=== PATIENT | female | born 1995 | race Hispanic/Latino ===

== ENCOUNTER 2018-01-03 11:10 | Emergency (ER) | payer MEDICAID, OTHER ==
[~2018-01-03 11:10] MED LIST: FERS325 PO; IBUP-2070 PO
[2018-01-03 12:07] LABS: BASOPHILS % (AUTO) 0.6 % (0.0-5.0); EOSINOPHILS % (AUTO) 0.7 % (0.0-8.0); HEMATOCRIT 28.4 % (36-48); LYMPHOCYTES % (AUTO) 12.3 % (21.0-51.0); MEAN CORPUSCULAR HEMOGLOBIN 19.7 pg (27.0-33.0); MEAN CORPUSCULAR HGB CONC 31.5 g/dL (32.0-36.0); MEAN CORPUSCULAR VOLUME 62.5 fL (80-100); MONOCYTES % (AUTO) 10.5 % (3.0-13.0); NEUTROPHILS % (AUTO) 75.9 % (40.0-77.0); PLATELET COUNT (AUTO) 194 K/uL (130-400); RED BLOOD CELL COUNT(AUTO) 4.55 MIL/uL (4.00-5.50); RED CELL DISTRIBUTION WIDTH 20.1 % (11.0-15.5); WHITE BLOOD COUNT (AUTO) 7.1 K/uL (4.8-10.8)
[2018-01-03 12:11] LABS: APPEARANCE,URINE Cloudy (CLEAR); BILIRUBIN,URINE Moderate (NEGATIVE); COLOR,URINE Orange (YELLOW); GLUCOSE, URINE (UA) Negative (NEGATIVE); KETONES,URINE >=160 mg/dL (NEGATIVE); LEUKOCYTE ESTERASE ,URINE Moderate (NEGATIVE); NITRATE,URINE Negative (NEGATIVE); OCCULT BLOOD,URINE Large (NEGATIVE); PH,URINE 5.5 (5.0-8.0); PROTEIN,URINE >=1000 (NEGATIVE)
[2018-01-03 12:15] LABS: HCG,QUAL RESULT NEGATIVE (NEGATIVE)
[2018-01-03 12:17] LABS: RAPID GROUP A STREP NEGATIVE (NEGATIVE)
[2018-01-03 12:21] LABS: CREATININE 0.8 mg/dL (0.5-1.5); POTASSIUM 3.6 mmol/L (3.5-5.1)
[2018-01-03 12:22] LABS: RBC,URINE TNTC /HPF (0-1)
[2018-01-03 12:23] LABS: BACTERIA,URINE Moderate /HPF (None Seen)
[2018-01-03] MEDS ORDERED: DEXAMETHASONE SOD PHOSPHATE 10MG/ML 1ML VIAL ONE (12:35)
[2018-01-03] MEDS ORDERED: SODIUM CHLORIDE 0.9% 1000ML 1,000 ML IV ONE (12:35)
[2018-01-03] MEDS ORDERED: KETOROLAC TROMETHAMINE 30MG/ML ONE (12:35)
[2018-01-03] MEDS ORDERED: CEFTRIAXONE SODIUM 1 GM ONE (12:35)
== END 2018-01-03 13:53 | disposition home or self-care (01) ==
LOC: EDH 11:10
DX: J36 Peritonsillar abscess (principal); R50.81 Fever presenting with conditions classified elsewhere; J45.909 Unspecified asthma, uncomplicated
CPT/HCPCS: 36415; 80048; 81001; 81025; 85025; 87804 ×2; 87880; 96374; 96375; 99284; J0696; J1100; J1885; J7030

== ENCOUNTER 2018-01-07 20:45 | Emergency (ER) | payer OTHER ==
[2018-01-07 21:53] LABS: BASOPHILS % (AUTO) 0.4 % (0.0-5.0); EOSINOPHILS % (AUTO) 2.5 % (0.0-8.0); HEMATOCRIT 29.8 % (36-48); LYMPHOCYTES % (AUTO) 6.6 % (21.0-51.0); MEAN CORPUSCULAR HEMOGLOBIN 19.7 pg (27.0-33.0); MEAN CORPUSCULAR HGB CONC 31.5 g/dL (32.0-36.0); MEAN CORPUSCULAR VOLUME 62.7 fL (80-100); MONOCYTES % (AUTO) 6.2 % (3.0-13.0); NEUTROPHILS % (AUTO) 84.3 % (40.0-77.0); PLATELET COUNT (AUTO) 335 K/uL (130-400); RED BLOOD CELL COUNT(AUTO) 4.75 MIL/uL (4.00-5.50); RED CELL DISTRIBUTION WIDTH 20.9 % (11.0-15.5); WHITE BLOOD COUNT (AUTO) 9.4 K/uL (4.8-10.8)
[2018-01-07 22:00] LABS: APPEARANCE,URINE Cloudy (CLEAR); BILIRUBIN,URINE Moderate (NEGATIVE); COLOR,URINE Dark Yellow (YELLOW); GLUCOSE, URINE (UA) Negative (NEGATIVE); KETONES,URINE Trace mg/dL (NEGATIVE); LEUKOCYTE ESTERASE ,URINE Moderate (NEGATIVE); NITRATE,URINE Negative (NEGATIVE); OCCULT BLOOD,URINE Moderate (NEGATIVE); PH,URINE 6.5 (5.0-8.0); PROTEIN,URINE POS 2+ (NEGATIVE)
[2018-01-07] MEDS ORDERED: SODIUM CHLORIDE 0.9% 1000ML 1,000 ML IV ONE (22:00)
[2018-01-07] MEDS ORDERED: ONDANSETRON HCL 4 MG/2 ML VIAL ONE (22:00)
[2018-01-07 22:04] LABS: HCG,QUAL RESULT NEGATIVE (NEGATIVE)
[2018-01-07 22:08] LABS: AMPHET/METH SCREEN,URINE NEGATIVE (NEGATIVE); BARBITURATE SCREEN, URINE NEGATIVE (NEGATIVE); BENZODIAZEPINES SCREEN,URINE NEGATIVE (NEGATIVE); CANNABINOID SCREEN,URINE POSITIVE (NEGATIVE); COCAINE SCREEN,URINE NEGATIVE (NEGATIVE); OPIATE SCREEN,URINE NEGATIVE (NEGATIVE); PHENCYCLIDINE SCREEN,URINE NEGATIVE (NEGATIVE)
[2018-01-07 22:38] LABS: BACTERIA,URINE Rare /HPF (None Seen); SQUAMOUS EPITHELIAL CELL,UR Few /HPF (0-2)
[2018-01-07 22:39] LABS: MUCUS,URINE Moderate LPF (None Seen)
[2018-01-07 22:58] LABS: CREATININE 0.8 mg/dL (0.5-1.5); POTASSIUM 3.3 mmol/L (3.5-5.1)
[2018-01-07 23:02] LABS: ALBUMIN 2.7 g/dL (3.5-5.0); BILIRUBIN,TOTAL 0.3 mg/dL (0.2-1.0)
[2018-01-07] MEDS ORDERED: CEPHALEXIN 500 MG CAPSULE ONE (23:31)
== END 2018-01-08 00:05 | disposition home or self-care (01) ==
LOC: EDH 20:45
DX: R10.13 Epigastric pain (principal); N39.0 Urinary tract infection, site not specified; R11.2 Nausea with vomiting, unspecified; J45.909 Unspecified asthma, uncomplicated
CPT/HCPCS: 36415; 74176; 80053; 80305; 81001; 81025; 83690; 85025; 87088; 96361; 96374; 99285; J2405; J7030

== ENCOUNTER 2018-07-23 23:29 | Emergency (ER) | payer OTHER ==
[2018-07-24] MEDS ORDERED: ORPHENADRINE CITRATE 30 MG/ML ML ONE (02:00)
[2018-07-24] MEDS ORDERED: ACETAMINOPHEN EXTRA STRENGTH 500 MG TABLET ONE (02:00)
[2018-07-24] MEDS ORDERED: KETOROLAC TROMETHAMINE 60 MG/2 ML VIAL ONE (02:00)
[2018-07-24] MEDS ORDERED: TETANUS/DIPHTHERIA TOXOID [ADULT] 0.5 ML VIAL IM ONE (02:00)
== END 2018-07-24 02:59 | disposition home or self-care (01) ==
LOC: EDH 23:29
DX: S00.03XA Contusion of scalp, initial encounter (principal); S80.02XA Contusion of left knee, initial encounter; S80.01XA Contusion of right knee, initial encounter; S00.83XA Contusion of other part of head, initial encounter; S50.01XA Contusion of right elbow, initial encounter; J45.909 Unspecified asthma, uncomplicated; Y04.0XXA Assault by unarmed brawl or fight, initial encounter; Y93.89 Activity, other specified; Y92.098 Other place in other non-institutional residence as the place of occurrence of the external cause; Y99.8 Other external cause status
CPT/HCPCS: 70450; 70486; 73070; 73562; 81025; 90471; 90714; 96372 ×2; 99285; J1885; J2360

== ENCOUNTER 2018-11-20 12:36 | Emergency (ER) | payer OTHER ==
[2018-11-20] MEDS ORDERED: NAPROXEN 500 MG TABLET ONE (14:02)
== END 2018-11-20 14:12 | disposition home or self-care (01) ==
LOC: EDH 12:36
DX: M72.0 Palmar fascial fibromatosis [Dupuytren] (principal); J45.909 Unspecified asthma, uncomplicated

== ENCOUNTER 2019-12-13 13:23 | Emergency (ER) | payer OTHER ==
[2019-12-13] MEDS ORDERED: ONDANSETRON HCL 4 MG/2 ML VIAL ONE (14:09)
[2019-12-13 14:25] LABS: APPEARANCE,URINE Clear (CLEAR); BILIRUBIN,URINE Negative (NEGATIVE); COLOR,URINE Yellow (YELLOW); GLUCOSE, URINE (UA) Negative (NEGATIVE); KETONES,URINE 15 mg/dL (NEGATIVE); LEUKOCYTE ESTERASE ,URINE Trace (NEGATIVE); NITRATE,URINE Negative (NEGATIVE); OCCULT BLOOD,URINE Negative (NEGATIVE); PH,URINE 5.5 (5.0-8.0); PROTEIN,URINE Negative (NEGATIVE); UROBILINOGEN,URINE 0.2 mg/dL (0.2-1.0)
[2019-12-13 14:27] LABS: BASOPHILS % (AUTO) 0.3 % (0.0-5.0); EOSINOPHILS % (AUTO) 1.4 % (0.0-8.0); HEMATOCRIT 32.6 % (36-48); LYMPHOCYTES % (AUTO) 16.4 % (21.0-51.0); MEAN CORPUSCULAR HEMOGLOBIN 20.3 pg (27.0-33.0); MEAN CORPUSCULAR HGB CONC 30.4 g/dL (32.0-36.0); MEAN CORPUSCULAR VOLUME 66.9 fL (79-99); MONOCYTES % (AUTO) 8.6 % (3.0-13.0); PLATELET COUNT (AUTO) 210 K/uL (130-400); RED BLOOD CELL COUNT(AUTO) 4.87 MIL/uL (4.00-5.50); RED CELL DISTRIBUTION WIDTH 18.6 % (11.0-15.5); WHITE BLOOD COUNT (AUTO) 6.3 K/uL (4.8-10.8)
[2019-12-13 14:35] LABS: CREATININE 0.6 mg/dL (0.5-1.5); POTASSIUM 3.3 mmol/L (3.5-5.1)
[2019-12-13 14:51] LABS: BACTERIA,URINE Rare /HPF (None Seen); RBC,URINE None Seen /HPF (0-1); WBC,URINE 0-1 /HPF (0-1)
== END 2019-12-13 15:01 | disposition home or self-care (01) ==
LOC: EDH 13:23
DX: O21.0 Mild hyperemesis gravidarum (principal); O99.011 Anemia complicating pregnancy, first trimester; Z3A.01 Less than 8 weeks gestation of pregnancy
CPT/HCPCS: 36415; 80048; 81001; 85025; 87088; 96361; 96374; 99283; J2405; J7030

== ENCOUNTER 2020-01-27 03:38 | Emergency (ER) | payer MEDICAID ==
[2020-01-27] MEDS ORDERED: SODIUM CHLORIDE 0.9% 1000ML 1,000 ML IV ONE ×2 (03:51→04:35)
[2020-01-27] MEDS ORDERED: DiphenhydrAMINE HCL 50 MG/ML VIAL ONE (03:51)
[2020-01-27] MEDS ORDERED: METOCLOPRAMIDE 10 MG/2 ML VIAL ONE (03:51)
[2020-01-27] MEDS ORDERED: PANTOPRAZOLE 40 MG/VIAL ONE (03:51)
[2020-01-27] MEDS ORDERED: ONDANSETRON HCL 4 MG/2 ML VIAL ONE (03:51)
[2020-01-27] MEDS ORDERED: FAMOTIDINE/PF 20 MG/2 ML VIAL IV ONE (03:52)
[2020-01-27 03:58] LABS: BASOPHILS % (AUTO) 0.8 % (0.0-5.0); EOSINOPHILS % (AUTO) 4.7 % (0.0-8.0); HEMATOCRIT 32.9 % (36-48); LYMPHOCYTES % (AUTO) 30.3 % (21.0-51.0); MEAN CORPUSCULAR HEMOGLOBIN 21.8 pg (27.0-33.0); MEAN CORPUSCULAR HGB CONC 31.6 g/dL (32.0-36.0); MEAN CORPUSCULAR VOLUME 68.8 fL (79-99); MONOCYTES % (AUTO) 10.4 % (3.0-13.0); NEUTROPHILS % (AUTO) 53.6 % (40.0-77.0); PLATELET COUNT (AUTO) 237 K/uL (130-400); RED BLOOD CELL COUNT(AUTO) 4.78 MIL/uL (4.00-5.50); RED CELL DISTRIBUTION WIDTH 19.2 % (11.0-15.5); WHITE BLOOD COUNT (AUTO) 6.4 K/uL (4.8-10.8)
[2020-01-27 04:14] LABS: INR 0.89 (0.85-1.15); PARTIAL THROMBOPLASTIN TIME 26.5 SEC (26.3-35.5); PROTHROMBIN TIME 9.7 SEC (9.6-11.6)
[2020-01-27 04:15] LABS: CREATININE 0.8 mg/dL (0.5-1.5); POTASSIUM 3.5 mmol/L (3.5-5.1)
[2020-01-27 04:35] LABS: BILIRUBIN,URINE Negative (NEGATIVE); COLOR,URINE Yellow (YELLOW); GLUCOSE, URINE (UA) Negative (NEGATIVE); KETONES,URINE Negative (NEGATIVE); LEUKOCYTE ESTERASE ,URINE Large (NEGATIVE); NITRATE,URINE Negative (NEGATIVE); OCCULT BLOOD,URINE Small (NEGATIVE); PROTEIN,URINE Trace mg/dL (NEGATIVE)
[2020-01-27 04:37] LABS: APPEARANCE,URINE CLOUDY (CLEAR)
[2020-01-27 04:43] LABS: ALBUMIN 3.6 g/dL (3.5-5.0); BILIRUBIN,TOTAL 0.3 mg/dL (0.2-1.0); TOTAL PROTEIN, SERUM 7.9 g/dL (6.0-8.3)
[2020-01-27 04:45] LABS: BACTERIA,URINE Many /HPF (None Seen); WBC,URINE 51-100 /HPF (0-1)
[2020-01-27] MEDS ORDERED: CEFTRIAXONE SODIUM 1 GM ONE (05:38)
== END 2020-01-27 06:07 | disposition home or self-care (01) ==
LOC: EDH 03:38
DX: O99.611 Diseases of the digestive system complicating pregnancy, first trimester (principal); K29.00 Acute gastritis without bleeding; K80.20 Calculus of gallbladder without cholecystitis without obstruction; O23.41 Unspecified infection of urinary tract in pregnancy, first trimester; O99.511 Diseases of the respiratory system complicating pregnancy, first trimester; J45.909 Unspecified asthma, uncomplicated; Z3A.12 12 weeks gestation of pregnancy
CPT/HCPCS: 36415; 76705; 76801; 80053; 81001; 83605; 83690; 84484; 84702; 85025; 85610; 85730; 86850; 86900; 86901; 87088; 93005; 96361; 96374; 96375; 99285; C9113; J0696; J1200; J2405; J2765; J3490; J7030 ×2

== ENCOUNTER 2020-01-31 01:26 | Emergency (ER) | payer MEDICAID ==
[2020-01-31] MEDS ORDERED: ONDANSETRON HCL 4 MG/2 ML VIAL ONE (01:58)
[2020-01-31] MEDS ORDERED: METOCLOPRAMIDE 10 MG/2 ML VIAL ONE (01:58)
[2020-01-31] MEDS ORDERED: DiphenhydrAMINE HCL 50 MG/ML VIAL ONE (01:58)
[2020-01-31] MEDS ORDERED: FAMOTIDINE/PF 20 MG/2 ML VIAL IV ONE (01:59)
[2020-01-31] MEDS ORDERED: PANTOPRAZOLE 40 MG/VIAL ONE (01:59)
[2020-01-31 02:06] LABS: BASOPHILS % (AUTO) 0.7 % (0.0-5.0); EOSINOPHILS % (AUTO) 3.5 % (0.0-8.0); HEMATOCRIT 30.2 % (36-48); LYMPHOCYTES % (AUTO) 33.9 % (21.0-51.0); MEAN CORPUSCULAR HEMOGLOBIN 22.1 pg (27.0-33.0); MEAN CORPUSCULAR HGB CONC 32.8 g/dL (32.0-36.0); MEAN CORPUSCULAR VOLUME 67.6 fL (79-99); MONOCYTES % (AUTO) 11.7 % (3.0-13.0); PLATELET COUNT (AUTO) 222 K/uL (130-400); RED BLOOD CELL COUNT(AUTO) 4.47 MIL/uL (4.00-5.50); RED CELL DISTRIBUTION WIDTH 18.6 % (11.0-15.5); WHITE BLOOD COUNT (AUTO) 5.7 K/uL (4.8-10.8)
[2020-01-31 02:07] LABS: CREATININE 0.7 mg/dL (0.5-1.5); POTASSIUM 3.1 mmol/L (3.5-5.1)
[2020-01-31 02:12] LABS: ALBUMIN 3.5 g/dL (3.5-5.0); BILIRUBIN,TOTAL 0.2 mg/dL (0.2-1.0); TOTAL PROTEIN, SERUM 7.4 g/dL (6.0-8.3)
[2020-01-31 02:20] LABS: INR 0.89 (0.85-1.15); PROTHROMBIN TIME 9.7 SEC (9.6-11.6)
[2020-01-31 03:15] LABS: APPEARANCE,URINE Cloudy (CLEAR); BILIRUBIN,URINE Negative (NEGATIVE); COLOR,URINE Yellow (YELLOW); GLUCOSE, URINE (UA) Negative (NEGATIVE); KETONES,URINE Negative (NEGATIVE); LEUKOCYTE ESTERASE ,URINE Large (NEGATIVE); NITRATE,URINE Negative (NEGATIVE); OCCULT BLOOD,URINE Negative (NEGATIVE); PH,URINE 6.5 (5.0-8.0); PROTEIN,URINE Negative (NEGATIVE)
[2020-01-31 03:22] LABS: BACTERIA,URINE Rare /HPF (None Seen); MUCUS,URINE Rare LPF (None Seen); RBC,URINE None Seen /HPF (0-1); SQUAMOUS EPITHELIAL CELL,UR Many /HPF (0-2)
== END 2020-01-31 04:14 | disposition home or self-care (01) ==
LOC: EDH 01:26
DX: K29.00 Acute gastritis without bleeding (principal); K21.9 Gastro-esophageal reflux disease without esophagitis; J45.909 Unspecified asthma, uncomplicated
CPT/HCPCS: 36415; 76705; 80053; 81001; 83605; 83690; 85025; 85610; 85730; 96361; 96374; 96375; 99284; C9113; J1200; J2405; J2765; J3490

== ENCOUNTER 2020-03-02 03:27 | Emergency (ER) | payer MEDICAID ==
[2020-03-02] MEDS ORDERED: ONDANSETRON ODT 4 MG TAB ONE (03:51)
[2020-03-02] MEDS ORDERED: LIDOCAINE HCL 2% VISCOUS 15 ML UDCUP ONE (03:51)
[2020-03-02] MEDS ORDERED: ACETAMINOPHEN 325 MG TAB ONE (03:51)
[2020-03-02] MEDS ORDERED: MAG HYDROX/AL HYDROX/SIMETH ES 30 ML SUSP UDCUP ONE (03:51)
[2020-03-02 04:18] LABS: BASOPHILS % (AUTO) 0.8 % (0.0-5.0); EOSINOPHILS % (AUTO) 1.6 % (0.0-8.0); HEMATOCRIT 28.6 % (36-48); LYMPHOCYTES % (AUTO) 14.9 % (21.0-51.0); MEAN CORPUSCULAR HEMOGLOBIN 22.3 pg (27.0-33.0); MEAN CORPUSCULAR HGB CONC 32.2 g/dL (32.0-36.0); MEAN CORPUSCULAR VOLUME 69.4 fL (79-99); MONOCYTES % (AUTO) 7.5 % (3.0-13.0); NEUTROPHILS % (AUTO) 74.9 % (40.0-77.0); PLATELET COUNT (AUTO) 195 K/uL (130-400); RED BLOOD CELL COUNT(AUTO) 4.12 MIL/uL (4.00-5.50); RED CELL DISTRIBUTION WIDTH 18.2 % (11.0-15.5); WHITE BLOOD COUNT (AUTO) 6.3 K/uL (4.8-10.8)
[2020-03-02 04:27] LABS: CREATININE 0.5 mg/dL (0.5-1.5); POTASSIUM 3.4 mmol/L (3.5-5.1)
[2020-03-02 04:31] LABS: BILIRUBIN,TOTAL 0.3 mg/dL (0.2-1.0)
== END 2020-03-02 06:10 | disposition home or self-care (01) ==
LOC: EDH 03:27
DX: O26.892 Other specified pregnancy related conditions, second trimester (principal); K80.20 Calculus of gallbladder without cholecystitis without obstruction; J45.909 Unspecified asthma, uncomplicated; Z3A.17 17 weeks gestation of pregnancy
CPT/HCPCS: 36415; 80053; 83690; 85025

== ENCOUNTER 2022-10-04 15:36 | Observation (INO) | payer MEDICAID ==
[~2022-10-04] VITALS: Ht 154.9 cm; Wt 59.8 kg
[~2022-10-04 15:36] MED LIST changes: +ACET-2079 PO; +ACET-3194 PO; +CEPH500B PO; +INHALER; +IRON; +PREN-18 PO; +PREN-61 PO
[2022-10-04 15:38] VITALS: BP 129/51; PULSE 60; RESP 18
[2022-10-04] MEDS: LACTATED RINGERS 1000ML IV PRN ×2 (16:25→17:12)
[2022-10-04 16:54] LABS: HEMATOCRIT 31.1 % (36-48); MEAN CORPUSCULAR HEMOGLOBIN 22.6 pg (27.0-33.0); MEAN CORPUSCULAR HGB CONC 31.2 g/dL (32.0-36.0); MEAN CORPUSCULAR VOLUME 72.5 fL (79-99); PLATELET COUNT (AUTO) 194 K/uL (130-400); RED BLOOD CELL COUNT(AUTO) 4.29 MIL/uL (4.00-5.50); RED CELL DISTRIBUTION WIDTH 16.4 % (11.0-15.5); WHITE BLOOD COUNT (AUTO) 6.7 K/uL (4.8-10.8)
[2022-10-04 16:58] LABS: APPEARANCE,URINE CLOUDY (CLEAR); BILIRUBIN,URINE NEGATIVE (NEGATIVE); COLOR,URINE YELLOW (YELLOW); GLUCOSE, URINE (UA) NEGATIVE (NEGATIVE); KETONES,URINE 150 mg/dL (NEGATIVE); LEUKOCYTE ESTERASE ,URINE 25 Leu/uL (NEGATIVE); NITRATE,URINE NEGATIVE (NEGATIVE); OCCULT BLOOD,URINE NEGATIVE (NEGATIVE); PROTEIN,URINE 100 mg/dL (NEGATIVE)
[2022-10-04] MEDS ORDERED: ONDANSETRON 4MG INJ IVP ONE (17:00)
[2022-10-04] MEDS ORDERED: PROMETHAZINE HCL 25 MG/ML 1ML AMPULE IM ONE (17:00)
[2022-10-04] MEDS ORDERED: METOCLOPRAMIDE 10 MG/2 ML VIAL IVP ONE (17:00)
[2022-10-04 17:01] LABS: ADD UA MICROSCOPIC YES
[2022-10-04 17:22] LABS: BACTERIA,URINE RARE /HPF (None Seen); MUCUS,URINE RARE LPF (None Seen); SQUAMOUS EPITHELIAL CELL,UR MANY /HPF (0-2)
[2022-10-04 17:29] LABS: CREATININE 0.6 mg/dL (0.5-1.5); POTASSIUM 3.4 mmol/L (3.5-5.1)
[2022-10-04 17:33] LABS: BILIRUBIN,TOTAL 0.7 mg/dL (0.2-1.0); TOTAL PROTEIN, SERUM 7.4 g/dL (6.0-8.3)
== END 2022-10-04 18:30 | disposition home or self-care (01) ==
LOC: EDH 15:36 → LDH 15:37
PROVIDERS: ADMIT Obstetrics & Gynecology; ATTEND Obstetrics & Gynecology
DX: O21.2 Late vomiting of pregnancy (principal); O26.893 Other specified pregnancy related conditions, third trimester; R10.30 Lower abdominal pain, unspecified; O99.891 Other specified diseases and conditions complicating pregnancy; M54.50 Low back pain, unspecified; O99.613 Diseases of the digestive system complicating pregnancy, third trimester; K59.00 Constipation, unspecified; Z3A.31 31 weeks gestation of pregnancy
CPT/HCPCS: 96374; 96361 ×2; 96375; 96372; 80053; 85027; 87088; 81001; 36415; G0378 ×2; G0379; J2550; J2405; J2765; J7120; 96360

== ENCOUNTER 2023-05-15 10:05 | Emergency (ER) | payer MEDICAID, OTHER ==
[~2023-05-15] VITALS: Ht 154.9 cm; Wt 58.1 kg
[~2023-05-15 10:05] MED LIST changes: +IBUP-2088 PO; +PREN1TAB80 PO
[2023-05-15 10:06] VITALS: BP 115/52; PULSE 63; RESP 20
[2023-05-15] MEDS: KETOROLAC 30MG VIAL (30MG/ML) IM ONE (11:20)
[2023-05-15] MEDS: ACETAMINOPHEN 500 MG TABLET PO ONE (11:21)
[2023-05-15 11:27] LABS: HCG,QUALITATIVE URINE NEGATIVE (NEGATIVE)
[2023-05-15 11:29] LABS: APPEARANCE,URINE CLEAR (CLEAR); BILIRUBIN,URINE NEGATIVE (NEGATIVE); COLOR,URINE COLORLESS (YELLOW); GLUCOSE, URINE (UA) NEGATIVE (NEGATIVE); KETONES,URINE NEGATIVE (NEGATIVE); LEUKOCYTE ESTERASE ,URINE NEGATIVE Leu/uL (NEGATIVE); NITRATE,URINE NEGATIVE (NEGATIVE); OCCULT BLOOD,URINE NEGATIVE (NEGATIVE); PROTEIN,URINE NEGATIVE (NEGATIVE); UROBILINOGEN,URINE 0.2 mg/dL (0.2-1.0)
[2023-05-15 11:41] LABS: ADD UA MICROSCOPIC NO
[2023-05-15 12:11] LABS: BASOPHILS # (AUTO) 0.03 K/uL (0.00-0.20); BASOPHILS % (AUTO) 0.4 % (0.0-5.0); EOSINOPHILS # (AUTO) 0.11 K/uL (0.00-0.70); EOSINOPHILS % (AUTO) 1.4 % (0.0-8.0); HEMATOCRIT 30.2 % (36-48); IMMATURE GRANULOCYTE ABSOLUTE 0.02 K/uL (0-1); LYMPHOCYTES # (AUTO) 1.2 K/uL (1.0-4.8); MEAN CORPUSCULAR HGB CONC 30.5 g/dL (32.0-36.0); MEAN CORPUSCULAR VOLUME 68.8 fL (79-99); MONOCYTES # (AUTO) 0.7 K/uL (0.1-1.0); MONOCYTES % (AUTO) 8.9 % (3.0-13.0); NEUTROPHILS # (AUTO) 5.7 K/uL (1.8-7.7); PLATELET COUNT (AUTO) 268 K/uL (130-400); RED BLOOD CELL COUNT(AUTO) 4.39 MIL/uL (4.00-5.50); RED CELL DISTRIBUTION WIDTH 18.8 % (11.0-15.5); WHITE BLOOD COUNT (AUTO) 7.8 K/uL (4.8-10.8)
[2023-05-15 12:23] LABS: CREATININE 0.6 mg/dL (0.5-1.5); POTASSIUM 4.3 mmol/L (3.5-5.1)
[2023-05-15] MEDS ORDERED: IOHEXOL-350 75 ML VIAL IV ONE (12:26)
[2023-05-15 12:28] LABS: ALBUMIN 3.9 g/dL (3.5-5.0); BILIRUBIN,TOTAL 0.4 mg/dL (0.2-1.0); TOTAL PROTEIN, SERUM 7.6 g/dL (6.0-8.3)
[2023-05-15] MEDS ORDERED: AMOX1TAB16 PO (13:48)
[2023-05-15] MEDS ORDERED: IBUP-2077 PO (13:48)
== END 2023-05-15 14:00 | disposition home or self-care (01) ==
LOC: EDH 10:05
DX: K02.9 Dental caries, unspecified (principal); L03.211 Cellulitis of face; J45.909 Unspecified asthma, uncomplicated; Z79.899 Other long term (current) drug therapy; Z98.890 Other specified postprocedural states
CPT/HCPCS: 99285; 70487; 80053; 85025; 81003; 81025; 36415; 96372; J1885; Q9967

== ENCOUNTER 2023-08-11 22:12 | Observation (INO) | payer MEDICAID ==
[~2023-08-11] VITALS: Ht 154.9 cm; Wt 58.1 kg
[~2023-08-11 22:12] MED LIST changes: +AMOX1TAB16 PO; +IBUP-2077 PO
[2023-08-11 22:45] LABS: BASOPHILS # (AUTO) 0.05 K/uL (0.00-0.20); BASOPHILS % (AUTO) 0.6 % (0.0-5.0); EOSINOPHILS # (AUTO) 0.15 K/uL (0.00-0.70); EOSINOPHILS % (AUTO) 1.8 % (0.0-8.0); HEMATOCRIT 29.4 % (36-48); IMMATURE GRANULOCYTE ABSOLUTE 0.02 K/uL (0-1); LYMPHOCYTES # (AUTO) 1.6 K/uL (1.0-4.8); LYMPHOCYTES % (AUTO) 19.3 % (21.0-51.0); MEAN CORPUSCULAR HEMOGLOBIN 21.2 pg (27.0-33.0); MEAN CORPUSCULAR HGB CONC 31.3 g/dL (32.0-36.0); MEAN CORPUSCULAR VOLUME 67.9 fL (79-99); MONOCYTES # (AUTO) 0.6 K/uL (0.1-1.0); MONOCYTES % (AUTO) 7.7 % (3.0-13.0); NEUTROPHILS # (AUTO) 5.8 K/uL (1.8-7.7); NEUTROPHILS % (AUTO) 70.4 % (40.0-77.0); PLATELET COUNT (AUTO) 255 K/uL (130-400); RED BLOOD CELL COUNT(AUTO) 4.33 MIL/uL (4.00-5.50); RED CELL DISTRIBUTION WIDTH 19.6 % (11.0-15.5); WHITE BLOOD COUNT (AUTO) 8.2 K/uL (4.8-10.8)
[2023-08-11 22:53] LABS: CREATININE 0.7 mg/dL (0.5-1.0); POTASSIUM 3.5 mmol/L (3.5-5.1)
[2023-08-11 22:58] LABS: ALBUMIN 3.8 g/dL (3.5-5.0); BILIRUBIN,TOTAL 0.2 mg/dL (0.2-1.0); TOTAL PROTEIN, SERUM 7.4 g/dL (6.0-8.3)
[2023-08-12] VITALS (7 sets, daily range): BP systolic 90–105; BP diastolic 52–56; PULSE 75–96; RESP 16–20; O2SAT 99
[2023-08-12] MEDS: 0.9%NACL 1000ML 1,000 ML IV ONE (01:20)
[2023-08-12] MEDS ORDERED: ONDANSETRON 4MG INJ IVP PRN (04:00)
[2023-08-12] MEDS: OXYTOCIN 10 USP UNITS/ML 20 UNIT in LACTATED RINGERS 1000ML 1,000 ML IV SCH (06:30)
[2023-08-12] MEDS: OXYTOCIN 10 USP UNITS/ML ONE (06:31)
[2023-08-12] MEDS ORDERED: MISOPROSTOL 200 MCG TABLET ONE (07:11)
[2023-08-12] MEDS ORDERED: METHYLERGONOVINE MALEATE 0.2 MG/1 ML ML ONE (07:11)
[2023-08-12] MEDS ORDERED: TRANEXAMIC ACID 1000MG/10ML ONE (07:45)
[2023-08-12] MEDS ORDERED: LIDOCAINE HCL-MPF 2% 10ML AMP IJ ONE (08:15)
[2023-08-12] MEDS ORDERED: SUCCINYLCHOLINE CHLORIDE 20 MG/ML 10 ML VIAL ONE (08:16)
[2023-08-12] MEDS ORDERED: MIDAZOLAM HCL 1 MG/ML 2ML VIAL ONE (08:16)
[2023-08-12] MEDS ORDERED: PROPOFOL 10 MG/ML 20ML VIAL IV ONE (08:16)
[2023-08-12] MEDS ORDERED: ROCURONIUM BROMIDE 10MG/1ML 5ML VL ONE (08:18)
[2023-08-12] MEDS ORDERED: GLYCOPYRROLATE 0.2 MG/ML 5 ML VIAL ONE (08:35)
[2023-08-12] MEDS ORDERED: NEOSTIGMINE METHYLSULFATE 1MG/ML IV ONE (08:37)
== END 2023-08-12 13:33 | disposition home or self-care (01) ==
LOC: EDH 22:12 → LDH 22:13 → UNDOADMOB 08-12 02:01 → EDHIP 08-12 02:02 → INTOOBSV 08-12 02:02
PROVIDERS: ADMIT Obstetrics & Gynecology; ATTEND Obstetrics & Gynecology
DX: O03.4 Incomplete spontaneous abortion without complication (principal); J45.909 Unspecified asthma, uncomplicated
CPT/HCPCS: 99284; 80053; 84702; 85025; 86900; 86901; 36415; 76801; 59812; 96365; 96366; 88305; G0378 ×11; J7030; A4351; J7120; J0330; J3490 ×4; J2250; J2590; J2710; A4649; J2210; J2704